=== PATIENT | female | born 1995 | race Two or more races ===

== ENCOUNTER 2022-01-29 18:10 | Emergency (ER) | payer MEDICAID ==
[~2022-01-29] VITALS: Ht 157.5 cm; Wt 56.7 kg
[2022-01-29 18:48] LABS: Basophils # (auto) 0.1 10 ^3/uL (0-0.2); Basophils % (auto) 0.8 % (0.0-2.0); Eosinophils # (auto) 0.2 10 ^3/uL (0-0.8); Eosinophils % (auto) 2.1 % (0.0-7.0); Hematocrit 41.9 % (36.0-46.0); Hemoglobin 13.5 g/dL (12.2-16.2); Lymphocytes % (auto) 23.5 % (10.0-50.0); Mean Corpuscular Hemoglobin 28.5 pg (28.0-32.0); Mean Corpuscular Hgb Conc. 32.2 g/dL (32.0-36.0); Mean Corpuscular Volume 88.5 fL (80.0-100.0); Monocytes # (auto) 0.6 10 ^3/uL (0-1.3); Monocytes % (auto) 7.2 % (0.0-12.0); Neutrophils # (auto) 5.6 10 ^3/uL (1.6-8.6); Neutrophils % (auto) 66.4 % (37.0-80.0); Nucleated Red Blood Cells % 0.1 %; Red Blood Cells 4.74 10^6/uL (4.0-5.20); Red Cell Distribution Width 13.5 % (11.8-14.3); White Blood Cell 8.4 10^3/uL (4.4-10.8)
[2022-01-29 19:04] LABS: Urine Bacteria FEW /hpf (None Seen); Urine Blood 3+ /uL (Negative); Urine Specific Gravity 1.005 (1.001-1.035); Urine WBC 7 /hpf (0 - 5)
[2022-01-29 19:06] LABS: BUN/Creatinine Ratio 14.5; Calcium 8.8 mg/dL (8.5-10.1); Potassium 3.8 mmol/L (3.5-5.1)
[2022-01-29 19:08] LABS: Bilirubin, Total 0.3 mg/dL (0.2-1.0); Total Protein 7.9 g/dL (6.4-8.2)
[2022-01-29] MEDS ORDERED: NITR-52 PO (21:24)
[2022-01-29 22:15] VITALS: BP 116/66
== END 2022-01-29 21:26 | disposition home or self-care (01) ==
LOC: ER 18:10
DX: O20.0 Threatened abortion (principal); O23.41 Unspecified infection of urinary tract in pregnancy, first trimester; N39.0 Urinary tract infection, site not specified; Z3A.01 Less than 8 weeks gestation of pregnancy
CPT/HCPCS: 36415; 76801; 76817; 80053; 81001; 84702; 85025; 86850; 86900; 86901

== ENCOUNTER → 2022-01-30 | Emergency (ER) | payer MEDICAID ==
[~2022-01-30] VITALS: Ht 157.5 cm; Wt 56.7 kg
[~2022-01-30] MED LIST: NITR-52 PO
[2022-01-30 20:04] LABS: Basophils # (auto) 0.1 10 ^3/uL (0-0.2); Basophils % (auto) 0.6 % (0.0-2.0); Eosinophils # (auto) 0.2 10 ^3/uL (0-0.8); Eosinophils % (auto) 1.9 % (0.0-7.0); Hematocrit 39.7 % (36.0-46.0); Hemoglobin 13.1 g/dL (12.2-16.2); Lymphocytes # (auto) 2.2 10 ^3/uL (0.4-5.4); Lymphocytes % (auto) 21.2 % (10.0-50.0); Mean Corpuscular Hemoglobin 28.7 pg (28.0-32.0); Mean Corpuscular Hgb Conc. 32.9 g/dL (32.0-36.0); Mean Corpuscular Volume 87.2 fL (80.0-100.0); Monocytes # (auto) 0.9 10 ^3/uL (0-1.3); Monocytes % (auto) 8.5 % (0.0-12.0); Neutrophils % (auto) 67.8 % (37.0-80.0); Nucleated Red Blood Cells % 0.1 %; Red Blood Cells 4.55 10^6/uL (4.0-5.20); Red Cell Distribution Width 13.3 % (11.8-14.3); White Blood Cell 10.3 10^3/uL (4.4-10.8)
[2022-01-30 20:06] LABS: Urine Bacteria FEW /hpf (None Seen); Urine Blood 3+ /uL (Negative); Urine Mucus FEW (None Seen); Urine Specific Gravity 1.028 (1.001-1.035); Urine WBC 5 /hpf (0 - 5)
[2022-01-30 20:23] LABS: Albumin 3.9 g/dL (3.4-5.0); BUN/Creatinine Ratio 17.4; INR 0.97 (0.9-1.15); Partial Thromboplastin Time 29.1 sec (23.6-33.0); Potassium 3.8 mmol/L (3.5-5.1)
[2022-01-30 20:25] LABS: Bilirubin, Total 0.3 mg/dL (0.2-1.0); Total Protein 7.7 g/dL (6.4-8.2)
[2022-01-31 02:32] VITALS: BP 135/83
== END | disposition home or self-care (01) ==
LOC: ER 19:00
DX: O03.9 Complete or unspecified spontaneous abortion without complication (principal); Z3A.01 Less than 8 weeks gestation of pregnancy
CPT/HCPCS: 36415; 76801; 76817; 80053; 81001; 84702; 85025; 85610; 85730; 86850; 86900; 86901

== ENCOUNTER 2024-10-04 18:02 | Observation (INO) | payer MEDICAID ==
[2024-10-04] MEDS ORDERED: PREN-96 PO (19:05)
--- NOTE | 2024-10-04 19:31 | DVH ---
EXAM: US OBSTERICAL LIMITED CLINICAL HISTORY: leaking of fluid COMPARISON: OB4US on DOS: 01/30/22, OB4US on DOS: 01/29/22 TECHNIQUE: Grayscale, color-flow Doppler, and spectral Doppler ultrasound of the pelvis is performed by transabdominal technique. Findings/Impression: Single live intrauterine in vertex presentation with heart rate of 152 bpm. Cervical os appears closed and measures 3.4 cm in length. Placenta is posterior in location without evidence of previa or abruption. Amniotic fluid is within normal limits MVP 8.4 cm. Fire Sprinkler Apparatus Inspector notes possible myometrial contraction, not seen on provided images.
[2024-10-04 20:02] LABS: Fern Testing Negative
--- NOTE | 2024-10-04 21:29 | DVHDS2 ---
Physician Discharge Progress N Final Diagnosis: IUP at 21 weeks Secondary Diagnosis: No Rupture of membranes Operations or Procedures: Operations or Procedures Documentation of FHT's Other Interventions Other Interventions Ultrasound: Revealing adequate fluid level with DVP greater than 8 cm Commentary: Commentary SSE performed; normal inspection with + normal discharge in vault. Fern obtained: Neg Nitrazine: Neg Condition on Discharge: Good Disposition: Home Discharge Instructions: Diet: Regular Activity: No Restrictions, As Tolerated Follow Up/Referral: As scheduled. Medications: Continue vitamins daily Follow Up Care: Primary Care Provider: Dr Root Discharge Statement: "Patient was advised to return to the ER or call 911 if any headaches, dizzines s, shortness of breath, chest pain, abdominal pain, bleeding, fevers, or worsening of medical condition. Patient was counseled about treatment plan, medications, possible side effects, patientverbalized understanding. All questions were answered to the best of my ability. This discharge took greater then 30 minutes in planning, reviewing documentation, counseling the patient, and discussing with other team members." Discharge Care Plan Instructions PTL precautions given follow up with Se Root as scheduled Visit Coding OBGYN Date of Service: Oct 04, 2024 Billing Provider: MARY JANE BENAVIDES CNM COMMERCIAL CARPET INSTALLER Common Visit Codes: [id number] OBS CARE (HIGH) MARY JANE BENAVIDES CNM Oct 04, 2024 21:29
== END 2024-10-04 20:14 | disposition home or self-care (01) ==
LOC: LDRP 18:02
PROVIDERS: ADMIT Obstetrics & Gynecology; ATTEND Obstetrics & Gynecology
DX: Z36.89 Encounter for other specified antenatal screening (principal); Z98.890 Other specified postprocedural states; Z79.899 Other long term (current) drug therapy; Z3A.21 21 weeks gestation of pregnancy
CPT/HCPCS: 76815; 81002; 94760; G0378; Q0114

== ENCOUNTER 2024-11-24 16:30 | Observation (INO) | payer MEDICAID ==
[~2024-11-24 16:30] MED LIST changes: +PREN-96 PO
[2024-11-24] MEDS ORDERED: NITR-87 PO (17:29)
--- NOTE | 2024-11-26 07:58 | DVHDS2 ---
Physician Discharge Progress N Final Diagnosis: iup at 36wks uti Operations or Procedures: Operations or Procedures nst reactive reviewed Condition on Discharge: Good Disposition: Home Discharge Instructions: Diet: Regular Activity: No Restrictions, As Tolerated Medications: na Follow Up Care: Specialist: 1w Discharge Statement: "Patient was advised to return to the ER or call 911 if any headaches, dizziness, shortness of breath, chest pain, abdominal pain, bleeding, fevers, or worsening of medical condition. Patient was counseled about treatment plan, medications, possible side effects, patientverbalized understanding. All questions were answered to the best of my ability. This discharge took greater then 30 minutes in planning, reviewing documen tation, counseling the patient, and discussing with other team members." Visit Coding OBGYN Date of Service: November 24, 2024 Billing Provider: LAURITA ALFREDO DO MBA INTERNSHIP Common Visit Codes: [id number] OBS CARE (HIGH) MBA INTERNSHIP Procedure Codes: 53641-72- NON-STRESS TEST LAURITA ALFREDO DO November 26, 2024 07:58
== END 2024-11-24 17:37 | disposition home or self-care (01) ==
LOC: LDRP 16:30
PROVIDERS: ADMIT Obstetrics & Gynecology; ATTEND Obstetrics & Gynecology
DX: O23.43 Unspecified infection of urinary tract in pregnancy, third trimester (principal); N39.0 Urinary tract infection, site not specified; Z79.899 Other long term (current) drug therapy; Z98.890 Other specified postprocedural states; Z3A.36 36 weeks gestation of pregnancy
CPT/HCPCS: 59025; 81002; 94760; G0378

== ENCOUNTER 2024-11-30 10:25 | Observation (INO) | payer MEDICAID ==
[~2024-11-30 10:25] MED LIST changes: +NITR-87 PO
[2024-11-30 10:58] LABS: Basophils # (auto) 0 10 ^3/uL (0-0.2); Basophils % (auto) 0.6 % (0.0-2.0); Eosinophils # (auto) 0.1 10 ^3/uL (0-0.8); Eosinophils % (auto) 0.7 % (0.0-7.0); Hematocrit 33.1 % (36.0-46.0); Hemoglobin 10.9 g/dL (12.2-16.2); Lymphocytes # (auto) 1.6 10 ^3/uL (0.4-5.4); Lymphocytes % (auto) 22.5 % (10.0-50.0); Mean Corpuscular Hemoglobin 28.9 pg (28.0-32.0); Mean Corpuscular Volume 87.6 fL (80.0-100.0); Monocytes # (auto) 0.5 10 ^3/uL (0-1.3); Monocytes % (auto) 7.4 % (0.0-12.0); Neutrophils # (auto) 4.8 10 ^3/uL (1.6-8.6); Neutrophils % (auto) 68.8 % (37.0-80.0); Nucleated Red Blood Cells % 0.1 %; Platelet Count (auto) 246 10^3/uL (140-450); Red Blood Cells 3.77 10^6/uL (4.0-5.20); Red Cell Distribution Width 13.8 % (11.8-14.3); White Blood Cell 7.1 10^3/uL (4.4-10.8)
[2024-11-30 11:04] LABS: Urine Bacteria FEW /hpf (None Seen); Urine Blood Negative /uL (Negative); Urine Clarity Clear (Clear); Urine Color Yellow (Yellow); Urine Mucus FEW (None Seen); Urine Protein, UAD TRACE (Negative); Urine Specific Gravity 1.026 (1.001-1.035); Urine Squamous Epithelial Cell FEW /hpf (<5); Urine Urobilinogen Normal (Negative); Urine WBC 2 /HPF (0-5); Urine pH 7.5 (5.0-9.0)
[2024-11-30 11:12] LABS: Protein, Urine 24.7 mg/dL (1-14)
[2024-11-30 11:13] LABS: INR 0.93 (0.9-1.15); Partial Thromboplastin Time 28.2 SEC (24.5-34.5); Prothrombin Time 9.9 sec (9.3-11.8)
[2024-11-30 11:14] LABS: Creatinine, Urine 139.78 mg/dL (30.0-125.0); Urine Protein/Creatinine Ratio 0.18
[2024-11-30 11:16] LABS: Alanine Aminotransferase 12 U/L (7-40); Albumin 3.8 g/dL (3.2-4.8); Alkaline Phosphatase 62 U/L (46-116); Anion Gap 7 (5-15); BUN/Creatinine Ratio 14.8 (10.0-20.0); Carbon Dioxide 25 mmol/L (20-31); Chloride 106 mmol/L (98-107); Glucose 81 mg/dL (74-106); Potassium 3.8 mmol/L (3.5-5.1); Sodium 138 mmol/L (136-145); Total Protein 6.3 g/dL (5.7-8.2); Uric Acid 3.4 mg/dL (3.1-7.8)
[2024-11-30 11:17] LABS: Bilirubin, Total 0.5 mg/dL (0.2-1.0)
[2024-11-30 11:18] LABS: Aspartate Aminotransferase 13 U/L (13-40); Blood Urea Nitrogen 8 mg/dL (9-23); Calcium 8.3 mg/dL (8.7-10.4)
--- NOTE | 2024-11-30 14:58 | DVHDS2 ---
Physician Discharge Progress N Final Diagnosis: PIH 28wks pih ruled out Operations or Procedures: Operations or Procedures nst reactive reviewed Condition on Discharge: Good Disposition: Home Discharge Instructions: Diet: Regular Activity: No Restrictions, As Tolerated Medications: na Follow Up Care: Specialist: 1w Discharge Statement: "Patient was advised to return to the ER or call 911 if any headaches, dizziness, shortness of breath, chest pain, abdominal pain, bleeding, fevers, or worsening of medical condition. Patient was counseled about treatment plan, medications, possible side effects, patient�verbalized understanding. All questions were answered to the best of my ability. This discharge took greater then 30 minutes in planning, reviewing documentation, counseling the patient, and discussing with other team members." Visit Coding OBGYN Date of Service: November 30, 2024 Billing Provider: LAURITA ALFREDO DO DIGITAL CONTENT MARKETING MANAGER Common Visit Codes: [id number] OBS CARE (HIGH) DIGITAL CONTENT MARKETING MANAGER Procedure Codes: 92730-72- NON-STRESS TEST LAURITA ALFREDO DO November 30, 2024 14:58
== END 2024-11-30 12:21 | disposition home or self-care (01) ==
LOC: UNDOADMOB 10:25 → LDRP 10:25 → UNDODISOB 12:21
PROVIDERS: ADMIT Obstetrics & Gynecology; ATTEND Obstetrics & Gynecology
DX: O13.3 Gestational [pregnancy-induced] hypertension without significant proteinuria, third trimester (principal); O23.43 Unspecified infection of urinary tract in pregnancy, third trimester; N39.0 Urinary tract infection, site not specified; Z3A.29 29 weeks gestation of pregnancy; Z91.040 Latex allergy status
CPT/HCPCS: 36415; 59025; 80053; 81001; 81002; 82570; 84156; 84550; 85025; 85610; 85730; 94760; G0378

== ENCOUNTER 2025-02-11 00:03 | Inpatient (IN) | payer MEDICAID ==
[~2025-02-11] VITALS: Ht 160 cm; Wt 71.2 kg
[2025-02-11] MEDS ORDERED: LIDOCAINE 2%HCL (LOCAL ANESTH.) INJ 20ML MDV IJ PRN (00:45)
[2025-02-11] MEDS ORDERED: NALBUPHINE HCL 10 MG/1ml INJECTION IV PRN (00:45)
[2025-02-11] MEDS ORDERED: PENICILLIN G POT 5MIL/D5 50ML 50 ML IV ONE (00:45)
--- NOTE | 2025-02-11 01:23 | DVHHP2 ---
OB CC & HPI Date Date of Admission: Feb 11, 2025 Patient Identification: : 3 Para: 0 EDC: Feb 11, 2025 EGA: 40w0d Chief Complaints: Reason for admission: rupture of membranes History of Present Complaints Saida Antonio is a 29 year old with IUP at 40w0d presenting for spontaneous rupture of membranes at 2320 on 02/10/25. Patient states she is feeling regular, painful contractions. Denies vaginal bleeding and states positive movement. care with Dr Root and Dr Alberts . - normal course thus far GBS status: Negative Earliest US Date: 06/20/24 5w6d LMP: 05/07/24 EDC: 02/11/25 Last OB US Date: 02/10/25 OB Hx: G#1 SAB G#2 SAB Past Medical History Cardiac: No pertinent Hx Pulmonary: No pertinent Hx Central Nervous System: No pertinent Hx GI: No pertinent Hx Hemotology/Oncology: No pertinent Hx Hepatobiliary: No pertinent Hx Psychiatric: No pertinent Hx Musculoskeletal: No pertinent Hx Rheumotologic: No pertinent Hx Infectious Disease: No peritnent Hx ENT: No pertinent Hx Renal/: No pertinent Hx Endocrine: No pertinent Hx Dermatology: No pertinent Hx Past Surgical History: No pertinent Hx OB History OB History Care: Good Care Ultrasounds: Normal mid trimester US Obstetrical Complications: None Medical Complications: None Allergies: Coded Allergies: NO KNOWN ALLERGIES (Unverified , 01/29/22) Home Meds Active Scripts Nitrofurantoin (Nitrofurantoin) 100 Mg Cap, 100 MG PO BID for 7 Days, #14 CAP Prov:SITA NEIL DO 01/29/22 Reported Medications Nitrofurantoin Monohydrate Mac (Macrobid) 100 Mg Cap, 100 MG PO BID for 7 Days, CAP 11/24/24 Vit W/ Ferrous Fumara ( One Daily) Daily Tab, 1 TAB PO DAILY, #90 TAB 3 Refills 10/04/24 Home Meds Currently only taking vitamins Current Medications Current Medications Medications (Trade) Dose Ordered Sig/Kayleigh Route PRN Reason Start Time Stop Time Status Last Admin Lactated Ringer's 1,000 ml @ 125 mls/hr Q8H IV 02/11/25 00:45 Nalbuphine HCl (Nubain) 10 mg Q4HP PRN IV MODERATE PAIN (4-6 PAIN SCALE) 02/11/25 00:45 Penicillin G Potassium [id number] units/Dextrose 50 ml @ 100 mls/hr Q4H IV 02/11/25 04:45 Cancel Witch Dee (Tucks) 1 pad PRN PRN TOP PERINEAL AREA DISCOMFORT 02/11/25 00:45 Sodium Lauryl Sulfate (Phisoderm) 240 ml PRN PRN TOP PERINEAL AREA DISCOMFORT 02/11/25 00:45 Benzocaine (Dermoplast) 1 applic PRN PRN TOP PERINEAL AREA DISCOMFORT 02/11/25 00:45 Lidocaine HCl (Xylocaine) 40 ml ONCE PRN IJ PERINEAL AREA DISCOMFORT 02/11/25 00:45 Family & Social History Family/Social History Blood Type: O+ Rubella: immune RPR/VDRL: Negative (NR) GBS Status: Negative HBsAG: Negative Review of Systems Constitutional: No symptom reported Ears, Nose, & Throat: No symptom reported Eyes: No symptom reported Pulmonary/Respiratory: No symptom reported Cardiovascular: No symptom reported Gastrointestinal: No symptom reported Genitourinary: No symptom reported Musculoskeletal: No symptom reported Skin: No symptom reported Psychiatric: No symptom reported Endocrine: No symptom reported Hemotologic/Lymphatic: No symptom reported OB Admission Exam Physical Exam HEENT: PERRLA (A&Ox4. Affect appropriate) Heart: Rhythm Normal Lungs: Clear Abdomen: Gravid (EFW by lavonne is 3175g) Extremities: Normal Reflexes: Normal Cervical Dilatation: 3cm Membranes: Ruptured Amniotic Fluid: Clear Heart Rate: 140's Accelerations: Accelerations Present Decelerations: No Decelerations Oyster Picker Variability: Average (6-25) Contractions on Admission: 6-10 Minutes Apart Date/Time Contractions Began: 02/10/25 @ 2320 OB Plan Plan Admitting Diagnosis: SROM Plan: Expectant Management Other Plan: ASSESSMENT: -29 yo , IUP at 40w0d -SROM and in labor -Category 1 Tracing -GBS negative PLAN: -Plan of care discussed with Patient -Process, Risks, benefits, of available management options discussed, including starting with expectant management, augmentation if indicated, Internal monitoring of UCs & FHT, AROM, amnioinfusion etc only when indicated -Patient agrees to starting with expectant management at this time, as she desires as natural a as possible; other interventions as indicated -Informed Consent obtained -Consent for possible blood transfusion obtained. -All questions answered. -Admit to Place for Labor -Routine L&D Admission orders -EFM per policy. OK to be intermittent per protocol, if FHR tracing is reactive and category 1 -Encourage ambulation and/exercises / frequent position change to facilitate labor & descent -Supportive care as needed -Re-assess cervix in 6 hours to evaluate need for augmentation Visit Coding OBGYN Date of Service: Feb 11, 2025 Billing Provider: KASHMIR PADRON CNM CUSTOMER CARE SPECIALIST Common Visit Codes: [id number] INP/OBS CARE (HIGH) CUSTOMER CARE SPECIALIST Procedure Codes: 04664-77- NON-STRESS TEST KASHMIR PADRON CNM Feb 11, 2025 01:23
[2025-02-11] MEDS: LACT. RINGERS/OXYTOCIN 20UNITS 500 ML IV ONE ×4 (01:30→11:28)
[2025-02-11 01:34] LABS: Hematocrit 34.2 % (36.0-46.0); Hemoglobin 11.3 g/dL (12.2-16.2); Mean Corpuscular Hemoglobin 27.4 pg (28.0-32.0); Mean Corpuscular Volume 83.1 fL (80.0-100.0); Nucleated Red Blood Cells % 0.1 %
[2025-02-11 01:49] LABS: INR 0.9 (0.9-1.15); Partial Thromboplastin Time 27.6 SEC (24.5-34.5); Prothrombin Time 9.6 sec (9.3-11.8)
[2025-02-11 01:50] LABS: Alanine Aminotransferase 11 U/L (7-40); Albumin 3.9 g/dL (3.2-4.8); Alkaline Phosphatase 120 U/L (46-116); Anion Gap 11 (5-15); BUN/Creatinine Ratio 11.6 (10.0-20.0); Bilirubin, Total 0.6 mg/dL (0.2-1.0); Blood Urea Nitrogen 8 mg/dL (9-23); Calcium 8.8 mg/dL (8.7-10.4); Carbon Dioxide 21 mmol/L (20-31); Chloride 107 mmol/L (98-107); Glucose 90 mg/dL (74-106); Potassium 3.9 mmol/L (3.5-5.1); Sodium 139 mmol/L (136-145); Total Protein 6.4 g/dL (5.7-8.2)
[2025-02-11] MEDS: LACTATED RINGER'S 1,000 ML IV SCH (04:14)
[2025-02-11 04:25] LABS: Urine Protein, UAD 2+ (Negative); Urine WBC Clumps PRESENT /hpf (None Seen)
[2025-02-11] MEDS ORDERED: PENICILLIN G POTASSIUM 2,500,000 UNITS in D5W 5% 50 ML IV SCH (04:45)
[2025-02-11 04:48] LABS: Amphetamine Screen, Urine Neg (NEGATIVE); Barbiturate Scree,Urine Neg (NEGATIVE); Benzodiazephine Screen, Urine Neg (NEGATIVE); Cannabinoid Screen, Urine Neg (NEGATIVE); Cocaine Screen, Urine Neg (NEGATIVE); Opiate Scree,Urine Neg (NEGATIVE); Phencyclidine Screen, Urine Neg (NEGATIVE)
--- NOTE | 2025-02-11 06:50 | DVHPN2 ---
VICKI Labor Progress Note Date and Time Seen Date Seen: Feb 11, 2025 Time Seen: 04:30 Subjective Subjective Comment Patient states that she is feeling tired, but otherwise coping with the labor. VICKI presented at bedside to assess due to RN call that strip has been category 1, but not reactive Objective Vital Signs Vitals: BP: 127/81 SpO2: 96% FHR: Category 2 tracing Monitoring Method Monitoring Method: External Heart Rate Heart Rate Variability: Minimal Presence of FHR Accelerations: No Presence of FHR Decelerations: Yes Heart Rate Type of Decel: Late Decelerations Contractions Contractions Frequency: Occasional Contractions Intensity: Moderate Contractions Resting Tone: Relaxed Membranes Membranes: Ruptured Amniotic Fluid Color: Clear Vaginal Exam Vag Exam Deferred: Yes Medications Medications - Pitocin: No Medication - Epidural: No Lab Results Lab Results Current Medications Medications (Trade) Dose Ordered Sig/Kayleigh Start Time Stop Time Status Last Admin Dose Admin Lactated Ringer's 1,000 ml @ 125 mls/hr Q8H 02/11/25 00:45 02/11/25 04:14 125 MLS/HR Nalbuphine HCl (Nubain) 10 mg Q4HP PRN 02/11/25 00:45 Witch Dee (Tucks) 1 pad PRN PRN 02/11/25 00:45 Sodium Lauryl Sulfate (Phisoderm) 240 ml PRN PRN 02/11/25 00:45 Benzocaine (Dermoplast) 1 applic PRN PRN 02/11/25 00:45 Lidocaine HCl (Xylocaine) 40 ml ONCE PRN 02/11/25 00:45 Oxytocin 500 ml @ 999 mls/hr Q31M ONCE 02/11/25 01:00 02/11/25 01:30 DC Oxytocin 500 ml @ 125 mls/hr Q4H ONCE 02/11/25 01:30 02/11/25 05:29 DC Laboratory Tests Test 02/11/25 04:00 02/11/25 00:55 Range/Units Urine Color Dark yellow Yellow Urine Clarity Ex.turbid Clear Urine pH 6.5 5.0-9.0 Urine Specific [place] 1.006 1.001-1.035 Urine Protein 2+ H Negative Urine Ketones Negative Negative Urine Blood 3+ H Negative /uL Urine Nitrite Negative Negative Urine Bilirubin Negative Negative Urine Urobilinogen Normal Negative mg/dL Urine Leukocyte Esterase 3+ Negative /uL Urine RBC 309 0 - 4 /hpf Urine WBC Clumps Present None Seen /hpf Urine Microscopic WBC 985 H 0-5 /HPF Urine Squamous Epithelial Cells None seen <5 /hpf Urine Bacteria Few H None Seen /hpf Urine Glucose Normal Normal mg/dL Urine Opiates Screen Neg NEGATIVE Urine Fentanyl Screen Neg NEGATIVE Urine Barbiturates Screen Neg NEGATIVE Urine Phencyclidine Screen Neg NEGATIVE Urine Amphetamines Screen Neg NEGATIVE Urine Benzodiazepines Screen Neg NEGATIVE Urine Cocaine Screen Neg NEGATIVE Urine Cannabinoids Screen Neg NEGATIVE White Blood Count 11.0 H 4.4-10.8 10^3/uL Red Blood Count 4.11 4.0-5.20 10^6/uL Hemoglobin 11.3 L 12.2-16.2 g/dL Hematocrit 34.2 L 36.0-46.0 % Mean Corpuscular Volume 83.1 80.0-100.0 fL Mean Corpuscular Hemoglobin 27.4 L 28.0-32.0 pg Mean Corpuscular Hemoglobin Concent 32.9 32.0-36.0 g/dL Red Cell Distribution Width 15.3 H 11.8-14.3 % Platelet Count 189 140-450 10^3/uL Mean Platelet Volume 10.7 6.9-10.8 fL Neutrophils (%) (Auto) 77.5 37.0-80.0 % Lymphocytes (%) (Auto) 13.8 10.0-50.0 % Monocytes (%) (Auto) 8.2 0.0-12.0 % Eosinophils (%) (Auto) 0.1 0.0-7.0 % Basophils (%) (Auto) 0.4 0.0-2.0 % Neutrophils # (Auto) 8.6 1.6-8.6 10 ^3/uL Lymphocytes # (Auto) 1.5 0.4-5.4 10 ^3/uL Monocytes # (Auto) 0.9 0-1.3 10 ^3/uL Eosinophils # (Auto) 0 0-0.8 10 ^3/uL Basophils # (Auto) 0 0-0.2 10 ^3/uL Nucleated Red Blood Cells 0.1 % Prothrombin Time 9.6 9.3-11.8 sec Prothrombin Time INR 0.90 0.9-1.15 Activated Partial Thromboplast Time 27.6 24.5-34.5 SEC Sodium Level 139 136-145 mmol/L Potassium Level 3.9 3.5-5.1 mmol/L Chloride Level 107 98-107 mmol/L Carbon Dioxide Level 21 20-31 mmol/L Anion Gap 11 5-15 Blood Urea Nitrogen 8 L 9-23 mg/dL Creatinine 0.69 0.550-1.02 mg/dL Glomerular Filtration Rate Calc 120 >90 mL/min BUN/Creatinine Ratio 11.6 10.0-20.0 Serum Glucose 90 74-106 mg/dL Calcium Level 8.8 8.7-10.4 mg/dL Total Bilirubin 0.6 0.2-1.0 mg/dL Aspartate Amino Transferase (AST) 19 13-40 U/L Alanine Aminotransferase (ALT) 11 7-40 U/L Alkaline Phosphatase 120 H 46-116 U/L Total Protein 6.4 5.7-8.2 g/dL Albumin 3.9 3.2-4.8 g/dL Treponema pallidum Antibody Non-reactive Negative Assessment Assessment -IUP at 40w0d -SROM, early labor -Category 2 tracing Plan Plan -Repositioned patient off back into R lateral position at 0435. Encouraged patient to continue to reposition and avoid laying on her back -Maintenance fluid switched from LR to D5LR. -Cervix to be re-assessed in 1-2 hours Plan discussed with: Patient, Other (RN) Visit Coding OBGYN Date of Service: Feb 11, 2025 Billing Provider: KASHMIR PADRON CNM CALIBRATION SPECIALIST Common Visit Codes: [id number] INP/OBS CARE(HIGH) KASHMIR PADRON CNM Feb 11, 2025 06:49
--- NOTE | 2025-02-11 07:23 | DVHPN2 ---
VICKI Labor Progress Note Date and Time Seen Date Seen: Feb 11, 2025 Time Seen: 07:00 Subjective Patient reports: No new complaints Subjective Comment Patient states she was able to get a little bit of rest. Rates her pain 7/10, but she is coping and still does not want medication or an epidural Monitoring Method Monitoring Method: Internal, External Heart Rate Heart Rate Variability: Moderate Presence of FHR Accelerations: No Contractions Contractions Frequency: Occasional Contractions Intensity: Moderate Contractions Resting Tone: Relaxed Membranes Membranes: Ruptured Amniotic Fluid Color: Clear Vaginal Exam Vag Exam Deferred: No Vaginal Exam Dilation: 5 Vaginal Exam Effacement: 90 Vaginal Exam Station: 0 Vaginal Exam Presentation: VTX Medications Medications - Pitocin: No Medication - Epidural: No Lab Results Lab Results Current Medications Medications (Trade) Dose Ordered Sig/Kayleigh Start Time Stop Time Status Last Admin Dose Admin Lactated Ringer's 1,000 ml @ 125 mls/hr Q8H 02/11/25 00:45 02/11/25 04:14 125 MLS/HR Nalbuphine HCl (Nubain) 10 mg Q4HP PRN 02/11/25 00:45 Witch Dee (Tucks) 1 pad PRN PRN 02/11/25 00:45 Sodium Lauryl Sulfate (Phisoderm) 240 ml PRN PRN 02/11/25 00:45 Benzocaine (Dermoplast) 1 applic PRN PRN 02/11/25 00:45 Lidocaine HCl (Xylocaine) 40 ml ONCE PRN 02/11/25 00:45 Oxytocin 500 ml @ 999 mls/hr Q31M ONCE 02/11/25 01:00 02/11/25 01:30 DC Oxytocin 500 ml @ 125 mls/hr Q4H ONCE 02/11/25 01:30 02/11/25 05:29 DC Laboratory Tests Test 02/11/25 04:00 02/11/25 00:55 Range/Units Urine Color Dark yellow Yellow Urine Clarity Ex.turbid Clear Urine pH 6.5 5.0-9.0 Urine Specific [place] 1.006 1.001-1.035 Urine Protein 2+ H Negative Urine Ketones Negative Negative Urine Blood 3+ H Negative /uL Urine Nitrite Negative Negative Urine Bilirubin Negative Negative Urine Urobilinogen Normal Negative mg/dL Urine Leukocyte Esterase 3+ Negative /uL Urine RBC 309 0 - 4 /hpf Urine WBC Clumps Present None Seen /hpf Urine Microscopic WBC 985 H 0-5 /HPF Urine Squamous Epithelial Cells None seen <5 /hpf Urine Bacteria Few H None Seen /hpf Urine Glucose Normal Normal mg/dL Urine Opiates Screen Neg NEGATIVE Urine Fentanyl Screen Neg NEGATIVE Urine Barbiturates Screen Neg NEGATIVE Urine Phencyclidine Screen Neg NEGATIVE Urine Amphetamines Screen Neg NEGATIVE Urine Benzodiazepines Screen Neg NEGATIVE Urine Cocaine Screen Neg NEGATIVE Urine Cannabinoids Screen Neg NEGATIVE White Blood Count 11.0 H 4.4-10.8 10^3/uL Red Blood Count 4.11 4.0-5.20 10^6/uL Hemoglobin 11.3 L 12.2-16.2 g/dL Hematocrit 34.2 L 36.0-46.0 % Mean Corpuscular Volume 83.1 80.0-100.0 fL Mean Corpuscular Hemoglobin 27.4 L 28.0-32.0 pg Mean Corpuscular Hemoglobin Concent 32.9 32.0-36.0 g/dL Red Cell Distribution Width 15.3 H 11.8-14.3 % Platelet Count 189 140-450 10^3/uL Mean Platelet Volume 10.7 6.9-10.8 fL Neutrophils (%) (Auto) 77.5 37.0-80.0 % Lymphocytes (%) (Auto) 13.8 10.0-50.0 % Monocytes (%) (Auto) 8.2 0.0-12.0 % Eosinophils (%) (Auto) 0.1 0.0-7.0 % Basophils (%) (Auto) 0.4 0.0-2.0 % Neutrophils # (Auto) 8.6 1.6-8.6 10 ^3/uL Lymphocytes # (Auto) 1.5 0.4-5.4 10 ^3/uL Monocytes # (Auto) 0.9 0-1.3 10 ^3/uL Eosinophils # (Auto) 0 0-0.8 10 ^3/uL Basophils # (Auto) 0 0-0.2 10 ^3/uL Nucleated Red Blood Cells 0.1 % Prothrombin Time 9.6 9.3-11.8 sec Prothrombin Time INR 0.90 0.9-1.15 Activated Partial Thromboplast Time 27.6 24.5-34.5 SEC Sodium Level 139 136-145 mmol/L Potassium Level 3.9 3.5-5.1 mmol/L Chloride Level 107 98-107 mmol/L Carbon Dioxide Level 21 20-31 mmol/L Anion Gap 11 5-15 Blood Urea Nitrogen 8 L 9-23 mg/dL Creatinine 0.69 0.550-1.02 mg/dL Glomerular Filtration Rate Calc 120 >90 mL/min BUN/Creatinine Ratio 11.6 10.0-20.0 Serum Glucose 90 74-106 mg/dL Calcium Level 8.8 8.7-10.4 mg/dL Total Bilirubin 0.6 0.2-1.0 mg/dL Aspartate Amino Transferase (AST) 19 13-40 U/L Alanine Aminotransferase (ALT) 11 7-40 U/L Alkaline Phosphatase 120 H 46-116 U/L Total Protein 6.4 5.7-8.2 g/dL Albumin 3.9 3.2-4.8 g/dL Treponema pallidum Antibody Non-reactive Negative Assessment Assessment -IUP at 40w0d -SROM and in labor -Intermittently category 2 tracing Plan Plan -SVE discussed and performed with consent. Baby reactive to scalp stimulation -IUPC discussed and placed with consent. Patient consents to an amnioinfusion if needed. RN to start amnioinfusion, per protocol if decelerations persist. -Continue to reposition frequently and as needed for tracing -RN to re-assess cervix in 3-4 hours Plan discussed with: Patient, Spouse Visit Coding OBGYN Date of Service: Feb 11, 2025 Billing Provider: KASHMIR PADRON CNM STORE STOCK ASSOCIATE Common Visit Codes: [id number] INP/OBS CARE(HIGH) KASHMIR PADRON CNM Feb 11, 2025 07:23
[2025-02-11] MEDS ORDERED: TERBUTALINE SULFATE 1 MG/ML 1ML VIAL SC PRN (07:45)
--- NOTE | 2025-02-11 07:56 | DVHPN2 ---
Chief Complaints Patient reports: No new complaints Nursing reports: No new complaints Objective Medications Current Medications Medications (Trade) Dose Ordered Sig/Kayleigh Route PRN Reason Start Time Stop Time Status Last Admin Benzocaine (Dermoplast) 1 applic PRN PRN TOP PERINEAL AREA DISCOMFORT 02/11/25 00:45 Cefazolin Sodium 50 ml @ 100 mls/hr Q8HR IV 02/11/25 16:00 UNV Lactated Ringer's 1,000 ml @ 125 mls/hr Q8H IV 02/11/25 00:45 02/11/25 04:14 Lidocaine HCl (Xylocaine) 40 ml ONCE PRN IJ PERINEAL AREA DISCOMFORT 02/11/25 00:45 Nalbuphine HCl (Nubain) 10 mg Q4HP PRN IV MODERATE PAIN (4-6 PAIN SCALE) 02/11/25 00:45 Oxytocin 1,000 ml @ 6 ml/hr Q24H IV 02/11/25 07:45 UNV Penicillin G Potassium [id number] units/Dextrose 50 ml @ 100 mls/hr Q4H IV 02/11/25 04:45 Cancel Sodium Lauryl Sulfate (Phisoderm) 240 ml PRN PRN TOP PERINEAL AREA DISCOMFORT 02/11/25 00:45 Terbutaline Sulfate (Brethine Inj) 0.25 mg ONCE PRN SC Uterine tachysystole 02/11/25 07:45 UNV Witch Dee (Tucks) 1 pad PRN PRN TOP PERINEAL AREA DISCOMFORT 02/11/25 00:45 Others ve-5cm/80/-1 Studies Laboratory Tests 02/11/25 00:55 Test 02/11/25 00:55 Range/Units Serum Glucose 90 74-106 mg/dL Ass/Plan Assessment labor with srom Plan start pitocin start ancef Visit Coding OBGYN Date of Service: Feb 11, 2025 Billing Provider: LAURITA ALFREDO DO ACTIVITY DIRECTOR Common Visit Codes: [id number] OBS CARE (HIGH) ACTIVITY DIRECTOR Procedure Codes: 18217-70- NON-STRESS TEST LAURITA ALFREDO DO Feb 11, 2025 07:56
[2025-02-11] MEDS: METHYLERGONOVINE MALEATE 0.2 MG/ML AMP IM ONE (08:00)
[2025-02-11] MEDS: LACT. RINGERS/OXYTOCIN 20UNITS 1,000 ML IV SCH (08:16)
[2025-02-11] MEDS: ceFAZolin 2 GM/D5W50ml 50 ML IV ONE (08:31)
--- NOTE | 2025-02-11 11:24 | LDN2 ---
Labor and Delivery Note Date 02/11/25 Age 29 3 Para 1 AB 2 EDC 7- EGA 40wks Diagnosis srom Vaginal Delivery: VTX Vacuum Assisted: No Placenta: Spontaneous Sex: Male Apgars 9-9 Nuchal Cord Transected: Yes Anesthesia xylocaine Episiotomy: No Extension: Yes (1st deg perineal and bilat 1st deg periurethral lac) Repaired with 2-0 chromic EBL 300ml Labs Blood Bank 02/11/25 00:55: Blood Type O POSITIVE Complications none Conditions stable Comments/Significant Med Charley spec exam no cxal lac Visit Coding OBGYN Date of Service: Feb 11, 2025 Billing Provider: LAURITA ALFREDO DO COMBAT RIFLE CREWMEMBER Common Visit Codes: [id number] OBS CARE (HIGH) COMBAT RIFLE CREWMEMBER Procedure Codes: 60732-72- NON-STRESS TEST LAURITA ALFREDO DO Feb 11, 2025 11:24
[2025-02-11] MEDS: IBUPROFEN 600 MG TAB PO PRN (12:44)
[2025-02-11] MEDS: DERMOPLAST 60ML BOTTLE TOP PRN (13:07)
[2025-02-11] MEDS: WITCH HAZEL-GLYCERIN PAD TOP PRN (13:07)
[2025-02-11] MEDS: PHISODERM TOP SOLN 240ML BTL TOP PRN (13:07)
[2025-02-11 14:00] VITALS: BP 120/71; PULSE 88; RESP 20; TEMP 98.3
[2025-02-11] MEDS ORDERED: ceFAZolin 1GM/50ML 50 ML IV SCH (16:00)
[2025-02-11 19:00] VITALS: BP 124/74; PULSE 75; RESP 18; TEMP 98.1; O2SAT 100
[2025-02-11] MEDS: ACETAMINOPHEN 325 MG TAB PO PRN (19:30)
[2025-02-11] MEDS: DOCUSATE SOD 100 MG CAP PO SCH (22:00)
[2025-02-11 23:00] VITALS: BP 118/70; PULSE 72; RESP 16; TEMP 98
[2025-02-12 03:00] VITALS: BP 120/72; PULSE 68; RESP 17; TEMP 98.3
[2025-02-12 07:00] VITALS: BP 130/80; PULSE 70; RESP 18; TEMP 98.1; O2SAT 97
--- NOTE | 2025-02-12 07:47 | DVHPN2 ---
Progress Note Date Seen: Feb 12, 2025 Subjective S: Lochia minimal Tolerating regular diet well. Ambulating and voiding well w/o feeling lightheaded or dizzy. Passing flatus but no BM yet. Breast feeding. Contraceptive plan: Desires and requests to be discharged home today vital signs Vital Sign Date Time Temp Pulse Resp B/P (MAP) Pulse Ox O2 Delivery O2 Flow Rate FiO2 02/12/25 03:00 98.3 68 17 120/72 (88) 98.3 02/11/25 19:00 100 02/11/25 18:40 Room Air Total Intake and Output 02/11/25 02/11/25 02/12/25 15:00 23:00 07:00 Output Total 1100 ml Balance -1100 ml medications Current Medications Medications Dose Ordered Sig/Kayleigh Route Start Time Stop Time Status Last Admin Dose Admin Lactated Ringer's 1,000 ml @ 125 mls/hr Q8H IV 02/11/25 00:45 02/11/25 04:14 125 MLS/HR Penicillin G Potassium [id number] units/Dextrose 50 ml @ 100 mls/hr Q4H IV 02/11/25 04:45 Cancel Witch Dee 1 pad PRN PRN TOP 02/11/25 00:45 02/11/25 13:07 1 PAD Sodium Lauryl Sulfate 240 ml PRN PRN TOP 02/11/25 00:45 02/11/25 13:07 240 ML Benzocaine 1 applic PRN PRN TOP 02/11/25 00:45 02/11/25 13:07 1 APPLIC Lidocaine HCl 40 ml ONCE PRN IJ 02/11/25 00:45 Oxytocin 1,000 ml @ 6 ml/hr Q24H IV 02/11/25 07:45 02/11/25 08:16 6 ML/HR Ibuprofen 600 mg Q6HP PRN PO 02/11/25 12:30 02/11/25 12:44 600 MG Acetaminophen 650 mg Q4HP PRN PO 02/11/25 12:30 02/11/25 19:30 650 MG Docusate Sodium 200 mg HS PO 02/11/25 22:00 laboratory and microbiology Laboratory Tests 02/11/25 00:55 Test 02/11/25 00:55 Range/Units Serum Glucose 90 74-106 mg/dL Objective OA&O x3 NAD. Afebrile, VSS Chest: heart and lung sounds normal. Breasts: Nipples intact w/o cracks or soreness Abdomen: normal BS, soft, non-tender, no rebound or guarding, fundus firm @ U- 1, lochia minimal Vulva :- no edema, or erythema, laceration site with sutures intact, edges in good approximation. Hemorrhoids noted Extremities: no edema or tenderness Lochia - minimal Assessment/Plan A/P 29yo now - ppd#1 s/p ; doing well. - Hemorrhoids - Blood Type: O Rh: Positive - Breast feeding - Rubella Immune Pain control with oral medications Bowel regimen: Increase fluid intake and fiber in diet, Laxative PRN PP BCM Plan: Undecided Discharge plan: May discharge home later today if condition remains stable Plan discussed with: Patient, Spouse Visit Coding OBGYN Date of Service: Feb 12, 2025 Billing Provider: RADHA LIMON CNM REIKI PRACTITIONER Common Visit Codes: [id number] INP/OBS CARE(HIGH) RADHA LIMON CNM Feb 12, 2025 07:47
--- NOTE | 2025-02-12 07:59 | DVHDS2 ---
Discharge Summary Date of Admission Feb 11, 2025 at 00:35 Date of Discharge: Feb 12, 2025 Admitting Diagnosis IUP at 40weeks Labs/Diagnostic Data: Laboratory Results Test 02/11/25 04:00 02/11/25 00:55 Urine Color Dark yellow (Yellow) Urine Clarity Ex.turbid (Clear) Urine pH 6.5 (5.0-9.0) Urine Specific [place] 1.006 (1.001-1.035) Urine Protein 2+ (Negative) Urine Ketones Negative (Negative) Urine Blood 3+ /uL (Negative) Urine Nitrite Negative (Negative) Urine Bilirubin Negative (Negative) Urine Urobilinogen Normal mg/dL (Negative) Urine Leukocyte Esterase 3+ /uL (Negative) Urine RBC 309 /hpf (0 - 4) Urine WBC Clumps Present /hpf (None Seen) Urine Microscopic WBC 985 /HPF (0-5) Urine Squamous Epithelial Cells None seen /hpf (<5) Urine Bacteria Few /hpf (None Seen) Urine Glucose Normal mg/dL (Normal) Urine Opiates Screen Neg (NEGATIVE) Urine Fentanyl Screen Neg (NEGATIVE) Urine Barbiturates Screen Neg (NEGATIVE) Urine Phencyclidine Screen Neg (NEGATIVE) Urine Amphetamines Screen Neg (NEGATIVE) Urine Benzodiazepines Screen Neg (NEGATIVE) Urine Cocaine Screen Neg (NEGATIVE) Urine Cannabinoids Screen Neg (NEGATIVE) White Blood Count 11.0 10^3/uL (4.4-10.8) Red Blood Count 4.11 10^6/uL (4.0-5.20) Hemoglobin 11.3 g/dL (12.2-16.2) Hematocrit 34.2 % (36.0-46.0) Mean Corpuscular Volume 83.1 fL (80.0-100.0) Mean Corpuscular Hemoglobin 27.4 pg (28.0-32.0) Mean Corpuscular Hemoglobin Concent 32.9 g/dL (32.0-36.0) Red Cell Distribution Width 15.3 % (11.8-14.3) Platelet Count 189 10^3/uL (140-450) Mean Platelet Volume 10.7 fL (6.9-10.8) Neutrophils (%) (Auto) 77.5 % (37.0-80.0) Lymphocytes (%) (Auto) 13.8 % (10.0-50.0) Monocytes (%) (Auto) 8.2 % (0.0-12.0) Eosinophils (%) (Auto) 0.1 % (0.0-7.0) Basophils (%) (Auto) 0.4 % (0.0-2.0) Neutrophils # (Auto) 8.6 10 ^3/uL (1.6-8.6) Lymphocytes # (Auto) 1.5 10 ^3/uL (0.4-5.4) Monocytes # (Auto) 0.9 10 ^3/uL (0-1.3) Eosinophils # (Auto) 0 10 ^3/uL (0-0.8) Basophils # (Auto) 0 10 ^3/uL (0-0.2) Nucleated Red Blood Cells 0.1 % Prothrombin Time 9.6 sec (9.3-11.8) Prothrombin Time INR 0.90 (0.9-1.15) Activated Partial Thromboplast Time 27.6 SEC (24.5-34.5) Sodium Level 139 mmol/L (136-145) Potassium Level 3.9 mmol/L (3.5-5.1) Chloride Level 107 mmol/L (98-107) Carbon Dioxide Level 21 mmol/L (20-31) Anion Gap 11 (5-15) Blood Urea Nitrogen 8 mg/dL (9-23) Creatinine 0.69 mg/dL (0.550-1.02) Glomerular Filtration Rate Calc 120 mL/min (>90) BUN/Creatinine Ratio 11.6 (10.0-20.0) Serum Glucose 90 mg/dL (74-106) Calcium Level 8.8 mg/dL (8.7-10.4) Total Bilirubin 0.6 mg/dL (0.2-1.0) Aspartate Amino Transferase (AST) 19 U/L (13-40) Alanine Aminotransferase (ALT) 11 U/L (7-40) Alkaline Phosphatase 120 U/L (46-116) Total Protein 6.4 g/dL (5.7-8.2) Albumin 3.9 g/dL (3.2-4.8) Treponema pallidum Antibody Non-reactive (Negative) Other Laboratory Tests 02/11/25 00:55 Brief Hx & Hospital Course: Admitted on 02/11/2025 at 40w 0d EGA for SROM and early labor. Labor augmented with Oxytocin. Patient then had an uneventful labor. She progressed to 2nd stage of labor and had a . Had First degree bilateral labial and periurethral laceration. (See Delivery Note for details) Normal course; meeting milestones w/o any problem or complications. Operations or Procedures Condition at Discharge: Good Final Diagnosis/Problems List Term - Delivered Hemorrhoids Discharge Disposition: Home Discharge Instruct/Medications Diet: Regular Diet comment: Routine regular diet rich in fiber, protein, iron and vitamin C with adequate fluid intake. Activity: No Restrictions, As Tolerated Activity comment: Advance as tolerated. Balance activities with rest periods No heavy lifting, pushing or straining. Pelvic rest x 6weeks Follow Up/Referral: self care instructions given. emergency signs and symptoms including but not limited to pre-eclampsia precautions and signs of infection, PPH & of PPD reviewed with patient. Follow up with OB Provider in 1 week Scheduled Nitrofurantoin (Nitrofurantoin), 100 MG PO BID Nitrofurantoin Monohydrate Mac (Macrobid), 100 MG PO BID, (Reported) Vit W/ Ferrous Fumara ( One Daily), 1 TAB PO DAILY, (Reported) Discharge Statement: self care instructions given. emergency signs and symptoms including but not limited to pre-eclampsia precautions and signs of infection, PPH & of PPD reviewed with patient. Follow up with OB Provider in 1 week "Patient was advised to return to the ER or call 911 if any headaches, dizziness, shortness of breath, chest pain, abdominal pain, bleeding, fevers, or worsening of medical condition. Patient was counseled about treatment plan, medications, possible side effects, patientverbalized understanding. All questions were answered to the best of my ability. This discharge took greater then 30 minutes in planning, reviewing documentation, counseling the patient, and discussing with other team members." ASSESSMENT ASSESSMENT Hospital Course Admitted on 02/11/2025 at 40w 0d EGA for SROM and early labor. Labor augmented with Oxytocin. Patient then had an uneventful labor. She progressed to 2nd stage of labor and had a . Had First degree bilateral labial and periurethral laceration. (See Delivery Note for details) Normal course; meeting milestones w/o any problem or complications. Assessment Term - Delivered Hemorrhoids Visit Coding OBGYN Date of Service: Feb 12, 2025 Billing Provider: RADHA LIMON CNM MANAGER [employer] Common Visit Codes: [id number] INP/OBS CARE(HIGH), 98319-FCU/OBS DISCH DAY <30MIN RADHA LIMON CNM Feb 12, 2025 07:59
[2025-02-12 11:00] VITALS: BP 117/80; PULSE 67; RESP 18; TEMP 97.7; O2SAT 98
[2025-02-12 15:00] VITALS: BP 99/66; PULSE 84; RESP 18; TEMP 98.3; O2SAT 98
[2025-02-12 19:30] VITALS: BP 120/76; PULSE 70; PULSE 80; RESP 16; TEMP 98.1; O2SAT 100
[2025-02-12 22:56] VITALS: BP 138/83; PULSE 80; RESP 18; TEMP 98.5; O2SAT 99
[2025-02-13 02:54] VITALS: BP 123/81; PULSE 63; RESP 16; TEMP 97.9; O2SAT 99
--- NOTE | 2025-02-13 06:29 | DVHDS2 ---
Discharge Summary Date of Admission Feb 11, 2025 at 00:35 Date of Discharge: Feb 13, 2025 Labs/Diagnostic Data: Laboratory Results Test 02/11/25 04:00 02/11/25 00:55 Urine Color Dark yellow (Yellow) Urine Clarity Ex.turbid (Clear) Urine pH 6.5 (5.0-9.0) Urine Specific [place] 1.006 (1.001-1.035) Urine Protein 2+ (Negative) Urine Ketones Negative (Negative) Urine Blood 3+ /uL (Negative) Urine Nitrite Negative (Negative) Urine Bilirubin Negative (Negative) Urine Urobilinogen Normal mg/dL (Negative) Urine Leukocyte Esterase 3+ /uL (Negative) Urine RBC 309 /hpf (0 - 4) Urine WBC Clumps Present /hpf (None Seen) Urine Microscopic WBC 985 /HPF (0-5) Urine Squamous Epithelial Cells None seen /hpf (<5) Urine Bacteria Few /hpf (None Seen) Urine Glucose Normal mg/dL (Normal) Urine Opiates Screen Neg (NEGATIVE) Urine Fentanyl Screen Neg (NEGATIVE) Urine Barbiturates Screen Neg (NEGATIVE) Urine Phencyclidine Screen Neg (NEGATIVE) Urine Amphetamines Screen Neg (NEGATIVE) Urine Benzodiazepines Screen Neg (NEGATIVE) Urine Cocaine Screen Neg (NEGATIVE) Urine Cannabinoids Screen Neg (NEGATIVE) White Blood Count 11.0 10^3/uL (4.4-10.8) Red Blood Count 4.11 10^6/uL (4.0-5.20) Hemoglobin 11.3 g/dL (12.2-16.2) Hematocrit 34.2 % (36.0-46.0) Mean Corpuscular Volume 83.1 fL (80.0-100.0) Mean Corpuscular Hemoglobin 27.4 pg (28.0-32.0) Mean Corpuscular Hemoglobin Concent 32.9 g/dL (32.0-36.0) Red Cell Distribution Width 15.3 % (11.8-14.3) Platelet Count 189 10^3/uL (140-450) Mean Platelet Volume 10.7 fL (6.9-10.8) Neutrophils (%) (Auto) 77.5 % (37.0-80.0) Lymphocytes (%) (Auto) 13.8 % (10.0-50.0) Monocytes (%) (Auto) 8.2 % (0.0-12.0) Eosinophils (%) (Auto) 0.1 % (0.0-7.0) Basophils (%) (Auto) 0.4 % (0.0-2.0) Neutrophils # (Auto) 8.6 10 ^3/uL (1.6-8.6) Lymphocytes # (Auto) 1.5 10 ^3/uL (0.4-5.4) Monocytes # (Auto) 0.9 10 ^3/uL (0-1.3) Eosinophils # (Auto) 0 10 ^3/uL (0-0.8) Basophils # (Auto) 0 10 ^3/uL (0-0.2) Nucleated Red Blood Cells 0.1 % Prothrombin Time 9.6 sec (9.3-11.8) Prothrombin Time INR 0.90 (0.9-1.15) Activated Partial Thromboplast Time 27.6 SEC (24.5-34.5) Sodium Level 139 mmol/L (136-145) Potassium Level 3.9 mmol/L (3.5-5.1) Chloride Level 107 mmol/L (98-107) Carbon Dioxide Level 21 mmol/L (20-31) Anion Gap 11 (5-15) Blood Urea Nitrogen 8 mg/dL (9-23) Creatinine 0.69 mg/dL (0.550-1.02) Glomerular Filtration Rate Calc 120 mL/min (>90) BUN/Creatinine Ratio 11.6 (10.0-20.0) Serum Glucose 90 mg/dL (74-106) Calcium Level 8.8 mg/dL (8.7-10.4) Total Bilirubin 0.6 mg/dL (0.2-1.0) Aspartate Amino Transferase (AST) 19 U/L (13-40) Alanine Aminotransferase (ALT) 11 U/L (7-40) Alkaline Phosphatase 120 U/L (46-116) Total Protein 6.4 g/dL (5.7-8.2) Albumin 3.9 g/dL (3.2-4.8) Treponema pallidum Antibody Non-reactive (Negative) Other Laboratory Tests 02/11/25 00:55 Brief Hx & Hospital Course: Admitted on 02/11/2025 at 40w 0d EGA for SROM and early labor. Labor augmented with Oxytocin. Patient then had an uneventful labor. She progressed to 2nd stage of labor and had a . Had First degree bilateral labial and periurethral laceration. (See Delivery Note for details) Normal course; meeting milestones w/o any problem or complications. Operations or Procedures Condition at Discharge: Good Final Diagnosis/Problems List Term - Delivered Hemorrhoids Discharge Disposition: Home Discharge Instruct/Medications Diet: Regular Diet comment: Routine regular diet rich in fiber, protein, iron and vitamin C withadequate fluid intake. Activity: No Restrictions, As Tolerated Activity comment: Advance as tolerated. Balance activities with rest periods No heavylifting, pushing or straining. Pelvic rest x 6weeks Follow Up/Referral: self care instructions given. emergency signs and symptomsincluding but not limited to pre-eclampsia precautions and signs ofinfection, PPH & of PPD reviewed with patient.Follow up with OB Provider in 1 week Scheduled Nitrofurantoin (Nitrofurantoin), 100 MG PO BID Nitrofurantoin Monohydrate Mac (Macrobid), 100 MG PO BID, (Reported) Vit W/ Ferrous Fumara ( One Daily), 1 TAB PO DAILY, (Reported) Discharge Statement: self care instructions given. emergency signs and symptoms including but not limited to pre-eclampsia precautions and signs of infection, PPH & of PPD reviewed with patient. Follow up with OB Provider in 1 week "Patient was advised to return to the ER or call 911 if any headaches, dizziness, shortness of breath, chest pain, abdominal pain, bleeding, fevers, or worsening of medical condition. Patient was counseled about treatment plan, medications, possible side effects, patientverbalized understanding. All questions were answered to the best of my ability. This discharge took greater then 30 minutes in planning, reviewing documentation, counseling the patient, and discussing with other team members." ASSESSMENT ASSESSMENT Hospital Course Admitted on 02/11/2025 at 40w 0d EGA for SROM and early labor. Labor augmented with Oxytocin. Patient then had an uneventful labor. She progressed to 2nd stage of labor and had a . Had First degree bilateral labial and periurethral laceration. (See Delivery Note for details) Normal course; meeting milestones w/o any problem or complications. Assessment Term - Delivered Hemorrhoids Visit Coding OBGYN Date of Service: Feb 13, 2025 Billing Provider: RADHA LIMON CNM COMMUNITY MANAGER Common Visit Codes: [id number]-SGS/OBS DISCH DAY <30MIN RADHA LIMON CNM Feb 13, 2025 06:29
--- NOTE | 2025-02-13 06:38 | DVHPN2 ---
Progress Note Date Seen: Feb 13, 2025 Subjective S: Lochia minimal Tolerating regular diet well. Ambulating and voiding well w/o feeling lightheaded or dizzy. Passing flatus but no BM yet. Breast feeding. Contraceptive plan: Desires and requests to be discharged home today vital signs Vital Sign Date Time Temp Pulse Resp B/P (MAP) Pulse Ox O2 Delivery O2 Flow Rate FiO2 02/13/25 02:54 97.9 63 16 123/81 (95) 99 97.9 02/12/25 19:30 Room Air medications Current Medications Medications Dose Ordered Sig/Kayleigh Route Start Time Stop Time Status Last Admin Dose Admin Lactated Ringer's 1,000 ml @ 125 mls/hr Q8H IV 02/11/25 00:45 02/11/25 04:14 125 MLS/HR Penicillin G Potassium [id number] units/Dextrose 50 ml @ 100 mls/hr Q4H IV 02/11/25 04:45 Cancel Witch Dee 1 pad PRN PRN TOP 02/11/25 00:45 02/11/25 13:07 1 PAD Sodium Lauryl Sulfate 240 ml PRN PRN TOP 02/11/25 00:45 02/11/25 13:07 240 ML Benzocaine 1 applic PRN PRN TOP 02/11/25 00:45 02/11/25 13:07 1 APPLIC Lidocaine HCl 40 ml ONCE PRN IJ 02/11/25 00:45 Ibuprofen 600 mg Q6HP PRN PO 02/11/25 12:30 02/12/25 18:51 600 MG Acetaminophen 650 mg Q4HP PRN PO 02/11/25 12:30 02/13/25 02:50 650 MG Docusate Sodium 200 mg HS PO 02/11/25 22:00 laboratory and microbiology Laboratory Tests 02/11/25 00:55 Test 02/11/25 00:55 Range/Units Serum Glucose 90 74-106 mg/dL Objective O: A&O x3 NAD. Afebrile, VSS Chest: heart and lung sounds normal. Breasts: Nipples intact w/o cracks or soreness Abdomen: normal BS, soft, non-tender, no rebound or guarding, fundus firm @ U- 2, lochia minimal Vulva:- no edema, or erythema, laceration site with sutures intact, edges in good approximation. Hemorrhoids noted Extremities: no edema or tenderness Lochia - minimal Assessment/Plan A/P 29 yo now ppd#2 s/p doing well. Blood Type: O Rh: Positive Breast feeding and Formula feeding Rubella Immune Pain control with oral medications Bowel regimen: Increase fluid intake and fiber in diet, Laxative PRN PP BCM Plan: undecided Discharge plan: May discharge home later today if condition remains stable Plan discussed with: Patient, Spouse Visit Coding OBGYN Date of Service: Feb 13, 2025 Billing Provider: RADHA LIMON CNM ADMINISTRATIVE [employer]LES Common Visit Codes: [id number] INP/OBS CARE(HIGH) RADHA LIMON CNM Feb 13, 2025 06:38
[2025-02-13 07:00] VITALS: BP 130/77; PULSE 62; RESP 16; TEMP 98.2; O2SAT 98
== END 2025-02-13 10:31 | disposition home or self-care (01) | DRG 560 ==
LOC: LDRP 00:03 → OBSVTOIN 00:35 → LDRP 00:36
PROVIDERS: ADMIT Obstetrics & Gynecology; ATTEND Obstetrics & Gynecology
PROC: 0HQ9XZZ Repair Perineum Skin, External Approach (ICD-10-PCS; principal; 2025-02-11)
PROC: 10E0XZZ Delivery of Products of Conception, External Approach (ICD-10-PCS; 2025-02-11)
PROC: 0UQMXZZ Repair Vulva, External Approach (ICD-10-PCS; 2025-02-11)
DX: O69.81X0 Labor and delivery complicated by cord around neck, without compression, not applicable or unspecified (principal); Z37.0 Single live birth; O87.2 Hemorrhoids in the puerperium; Z3A.40 40 weeks gestation of pregnancy; O71.82 Other specified trauma to perineum and vulva; O70.0 First degree perineal laceration during delivery; O76 Abnormality in fetal heart rate and rhythm complicating labor and delivery
CPT/HCPCS: 36415; 59409; 80053; 80307; 81001; 85025; 85610; 85730; 86780; 86850; 86900; 86901; 94760; 96360; 96365; 96366; G0378; J2590; J7060